=== PATIENT | female | born 1965 | race Caucasian/White ===

== ENCOUNTER 2019-02-09 06:19 | Inpatient (IN) ==
[2019-02-09] MEDS ORDERED: Albuterol 2.5 MG/3 ML NEBULIZER IH ONE ×2 (06:54→07:25)
[2019-02-09] MEDS ORDERED: Albuterol 2.5 MG/3 ML NEBULIZER ONE (06:56)
[2019-02-09] MEDS ORDERED: *HR* Heparin 5,000 UNIT/ML VIAL ONE ×2 (06:57→11:40)
[2019-02-09] MEDS ORDERED: Heparin 1,000 UNITS/500 mL 500 ML ONE ×2 (06:58→07:19)
[2019-02-09] MEDS ORDERED: *HR* PHENYLEPHRINE 1,000 MCG/10 ML SYRINGE IVP ONE (06:59)
[2019-02-09] MEDS ORDERED: Ringers Solution, Lactated 1,000 ML IVC SCH (07:00)
[2019-02-09] MEDS ORDERED: *HR* Phenylephrine 10 MG/ML VIAL ONE (07:00)
[2019-02-09] MEDS ORDERED: *HR* Rocuronium Bromide 50 MG/5 ML VIAL ONE (07:05)
[2019-02-09] MEDS ORDERED: Lidocaine -MPF 4% 5 ML AMPUL ONE (07:05)
[2019-02-09] MEDS ORDERED: Ondansetron 4 MG/2 ML VIAL ONE ×2 (07:05→13:27)
[2019-02-09] MEDS ORDERED: Dexamethasone 4 MG/ML VIAL ONE (07:05)
[2019-02-09] MEDS ORDERED: *HR* Succinylcholine 200 MG/10 ML VIAL IVP ONE (07:05)
[2019-02-09] MEDS ORDERED: Lidocaine -MPF 1% 2 ML AMPUL ONE (07:05)
[2019-02-09] MEDS ORDERED: Lidocaine -MPF 2% 2 ML VIAL ONE ×2 (07:05→10:17)
[2019-02-09] MEDS ORDERED: *HR* FentaNYL (PF) 100 MCG/2 ML VIAL ONE ×4 (07:07→10:12)
[2019-02-09] MEDS ORDERED: *HR* Propofol 200 MG/20 ML VIAL IVP ONE (07:07)
[2019-02-09] MEDS ORDERED: *HR* Midazolam HCl 2 MG/2 ML VIAL ONE (07:07)
[2019-02-09] MEDS ORDERED: Ondansetron 4 MG/2 ML VIAL IVP ONE (07:25)
[2019-02-09] MEDS ORDERED: *HR* OxyCODONE Immed Rel 5 MG TABLET PO PRN (07:25)
[2019-02-09] MEDS ORDERED: *HR* Promethazine 25 MG/ML VIAL IVP PRN (07:25)
[2019-02-09] MEDS ORDERED: Famotidine 20 MG/2 ML VIAL IVP ONE (07:25)
[2019-02-09] MEDS ORDERED: Acetaminophen IV 1,000 MG/100 ML INFUS..BTL IVPB ONE (07:25)
[2019-02-09] MEDS ORDERED: *HR* Labetalol 20 MG/4 ML SYRINGE IVP PRN ×2 (07:25→14:47)
[2019-02-09] MEDS ORDERED: CeFAZolin Syr 2,000MG/20 ML 2,000 MG/20 ML SYRINGE IVPB ONE (07:32)
[2019-02-09] MEDS ORDERED: ceFAZolin 1,000 MG, Sodium Chloride IRRigation 1,000 ML IR ONE (07:45)
[2019-02-09] MEDS ORDERED: EPHEDrine 50 MG/ML VIAL ONE (08:08)
[2019-02-09] MEDS ORDERED: *HR* HYDROMORPHONE 2 MG/ML VIAL ONE ×2 (10:29→13:25)
[2019-02-09] MEDS: *HR* HYDROmorphone (PF) 1 MG/ML SYRINGE IVP PRN ×2 (13:45→13:50)
[2019-02-09] MEDS ORDERED: Naloxone 0.4 MG/ML INJ IVP PRN (14:47)
[2019-02-09] MEDS ORDERED: Ondansetron 4 MG/2 ML VIAL IVP PRN (14:47)
[2019-02-09] MEDS: ceFAZolin 3,000 MG in 0.9 % Sodium Chloride 100 ML IVPB SCH (15:47)
[2019-02-09] MEDS: Gabapentin 400 MG CAPSULE PO SCH ×2 (15:47→20:43)
[2019-02-09] MEDS: *HR* OxyCODONE/APAP 10/325 TABLET PO PRN ×2 (15:47→21:49)
[2019-02-09] MEDS: Nicotine 21 MG PATCH.TD24 TD SCH (20:44)
[2019-02-10] MEDS: ceFAZolin 3,000 MG in 0.9 % Sodium Chloride 100 ML IVPB SCH ×2 (00:02→07:36)
[2019-02-10 05:56] LABS: Basophils % 0.1 %; Eosinophils % 0.3 %; Hematocrit 38.9 % (35.3-44.9); Immature Granulocytes % 0.3 % (0-4); Lymphocytes # 3.5 K/mcL (0.6-4.6); Mean Corpuscular HGB Conc 32.1 g/dL (31.6-35.5); Mean Corpuscular Hemoglobin 30.1 pg (28.0-33.3); Mean Corpuscular Volume 93.7 fL (83.0-100.0); Mean Platelet Volume 9.6 fL (9.4-12.4); Monocytes # 0.9 K/mcL (0.0-1.3); Neutrophils # 10.8 K/mcL (1.6-8.9); Platelet Count 290 K/mcL (140-400); Red Blood Count 4.15 M/mcL (3.82-4.97); Red Cell Distribution Width 14.3 % (11.5-14.5); Segmented Neutrophils % 70.3 %; White Blood Count 15.4 K/mcL (4.3-11.1)
[2019-02-10 06:01] LABS: Hemoglobin 12.5 g/dL (11.5-15.4)
[2019-02-10 06:15] LABS: BUN/Creatinine Ratio 17 (6-26); Blood Urea Nitrogen 14 mg/dL (6-20); Calcium 8.6 mg/dL (8.6-10.3); Carbon Dioxide 29 mEq/L (23-29); Chloride 101 mEq/L (98-107); Glucose 112 mg/dL (70-105); Osmolality,Calculated 291 (280-300); Sodium 140 mEq/L (136-145); eGFR For African Americans > 60 (> 60); eGFR For Non-African Americans > 60 (> 60)
[2019-02-10] MEDS: *HR* OxyCODONE/APAP 10/325 TABLET PO PRN ×2 (06:46→13:09)
[2019-02-10] MEDS: Gabapentin 400 MG CAPSULE PO SCH ×3 (07:36→18:12)
[2019-02-10] MEDS: Nicotine 21 MG PATCH.TD24 TD SCH (07:36)
[2019-02-10] MEDS ORDERED: Lisinopril 20 MG TABLET PO SCH (09:00)
[2019-02-10] MEDS: Acetaminophen/Aspirin/Caffeine TABLET PO PRN ×2 (09:11→18:12)
[2019-02-10 19:18] VITALS: BP 132/89
== END 2019-02-10 19:00 | disposition home or self-care (01) | DRG 253 ==
LOC: SAMDAY 06:19 → 2NNU 14:22
PROVIDERS: ADMIT Surgery Vascular Surgery; ATTEND Surgery Vascular Surgery

== ENCOUNTER 2019-02-26 08:39 | Inpatient (IN) ==
[2019-02-26] MEDS ORDERED: *HR* Midazolam HCl 2 MG/2 ML VIAL IV ONE (10:52)
[2019-02-26] MEDS ORDERED: *HR* Midazolam HCl 5 MG/5 ML VIAL IVP ONE (10:52)
[2019-02-26] MEDS ORDERED: Ondansetron 4 MG/2 ML VIAL IVP PRN (11:58)
[2019-02-26] MEDS ORDERED: Naloxone 0.4 MG/ML INJ IVP PRN (11:58)
[2019-02-26] MEDS ORDERED: Ringers Solution, Lactated 1,000 ML IVC SCH (12:00)
[2019-02-26] MEDS ORDERED: *HR* Heparin 5,000 UNIT/ML VIAL IVP PRN ×2 (12:04)
[2019-02-26 12:54] LABS: VBG HCO3 24 mEq/L (21-27); VBG PCO2 39 mmHg (41-51); VBG PH 7.39 pH Units (7.32-7.42); VBG PO2 41 mmHg (25-50)
[2019-02-26 13:00] LABS: Basophils % 0.1 %; Hematocrit 30.7 % (35.3-44.9); Hemoglobin 9.8 g/dL (11.5-15.4); Lymphocytes # 0.9 K/mcL (0.6-4.6); Lymphocytes % 4.4 %; Mean Corpuscular HGB Conc 31.9 g/dL (31.6-35.5); Mean Corpuscular Volume 90.8 fL (83.0-100.0); Mean Platelet Volume 9.4 fL (9.4-12.4); Monocytes # 1.4 K/mcL (0.0-1.3); Monocytes % 6.5 %; Platelet Count 406 K/mcL (140-400); Red Blood Count 3.38 M/mcL (3.82-4.97); Red Cell Distribution Width 14.6 % (11.5-14.5); White Blood Count 20.7 K/mcL (4.3-11.1)
[2019-02-26] MEDS ORDERED: Cefepime HCl 2,000 MG in 0.9 % Sodium Chloride Mini Bag 100 ML IVPB SCH (13:00)
[2019-02-26 13:09] LABS: Heparin anti-factor XA UFH 0.03 IU/mL (0.30-0.70); INR 1.5; Prothrombin Time 17.2 Seconds (9.4-12.1)
[2019-02-26 13:35] LABS: Alanine Aminotransferase 9 Units/L (7-52); Albumin 2.9 g/dL (3.5-5.7); Albumin/Globulin Ratio 0.9 (1.1-2.2); Alkaline Phosphatase 67 Units/L (34-104); Aspartate Amino Transferase 38 Units/L (13-39); BUN/Creatinine Ratio 21 (6-26); Bilirubin,Direct 0.2 mg/dL (0.0-0.2); Bilirubin,Indirect 0.2 mg/dL (0.0-1.2); Bilirubin,Total 0.4 mg/dL (0.3-1.0); Blood Urea Nitrogen 16 mg/dL (6-20); Calcium 8.1 mg/dL (8.6-10.3); Carbon Dioxide 25 mEq/L (23-29); Chloride 103 mEq/L (98-107); Globulin 3.3 g/dL (2.4-3.5); Glucose 136 mg/dL (70-105); Magnesium 2.1 mg/dL (1.6-2.6); Osmolality,Calculated 281 (280-300); Sodium 134 mEq/L (136-145); Total Protein 6.2 g/dL (6.4-8.9); Troponin I 10.16 ng/mL (< 0.04); eGFR For African Americans > 60 (> 60); eGFR For Non-African Americans > 60 (> 60)
[2019-02-26] MEDS: Heparin 25,000 UNIT/250 ML D5W 25,000 UNIT/250 ML IV.SOLN IVC SCH (14:57)
[2019-02-26] MEDS ORDERED: Vancomycin 1,750 MG in 0.9 % Sodium Chloride 250 ML IVPB SCH (15:00)
[2019-02-26] MEDS ORDERED: Perflutren Lipid Microsphere 1.3 ML in 0.9 % Sodium Chloride 8.7 ML IVP ONE (15:16)
[2019-02-26] MEDS ORDERED: Nitroglycerin 1,000 MCG/10 ML VIAL IV ONE (15:58)
[2019-02-26] MEDS ORDERED: 0.9 % Sodium Chloride 1,000 ML ONE (15:58)
[2019-02-26] MEDS ORDERED: *HR* Heparin 10,000 UNIT/10 ML VIAL ONE (15:58)
[2019-02-26] MEDS ORDERED: Heparin 1,000 UNITS/500 mL 500 ML ONE (15:58)
[2019-02-26] MEDS ORDERED: ISOVUE-370 200 ML INFUS..BTL ONE (15:58)
[2019-02-26] MEDS ORDERED: Acyclovir 600 MG in D5% in Water 250 ML IVPB SCH (16:00)
[2019-02-26] MEDS ORDERED: Verapamil 5 MG/2 ML VIAL ONE (16:01)
[2019-02-26] MEDS ORDERED: *HR* Atropine Sulfate 1 MG/10 ML SYRINGE ONE (16:03)
[2019-02-26] MEDS: MEROPENEM IVP SCH (16:14)
[2019-02-26] MEDS: WATER FOR INJ IVP SCH (16:14)
[2019-02-26] MEDS: Dexamethasone 10 MG/ML VIAL IVP SCH ×2 (16:15→18:21)
[2019-02-26] MEDS ORDERED: *HR* Midazolam HCl 2 MG/2 ML VIAL ONE ×2 (16:45→19:22)
[2019-02-26] MEDS ORDERED: *HR* FentaNYL (PF) 100 MCG/2 ML VIAL ONE (16:45)
[2019-02-26] MEDS ORDERED: Tirofiban 5 MG/100 mL 5 MG/100 ML VIAL IV ONE (17:04)
[2019-02-26] MEDS ORDERED: *HR* Ticagrelor 90 MG TABLET ONE (17:26)
[2019-02-26] MEDS ORDERED: Tirofiban 12.5 MG/250ML 12.5 MG/250 ML BAG IVC SCH (17:30)
[2019-02-26] MEDS ORDERED: *HR* FentaNYL (PF) 100 MCG/2 ML VIAL IVP ONE (18:40)
[2019-02-26] MEDS ORDERED: Furosemide 40 MG/4 ML VIAL IVP ONE (19:52)
[2019-02-26] MEDS ORDERED: *HR* Metoprolol 5 MG/5 ML VIAL IVP ONE (20:00)
[2019-02-26 20:01] LABS: ABG Base Excess -10 mEq/L (-2 to 3); ABG HCO3 17 mEq/L (21-27); ABG Oxygen Saturation 97 % (95-98); ABG PCO2 41 mmHg (35-45); ABG PH 7.23 pH Units (7.32-7.45); ABG PO2 110 mmHg (85-104); ABG TCO2 19 mEq/L (20-26); Blood Gas Modality ASSIST CONTROL; Blood Gas VT 500 cc
[2019-02-26] MEDS: *HR* Metoprolol 5 MG/5 ML VIAL IVP PRN ×2 (20:08→20:38)
[2019-02-26 20:12] LABS: Hemoglobin 11.1 g/dL (11.5-15.4); Nucleated Red Blood Cells 0.1 /100 WBC (0)
[2019-02-26 20:13] LABS: Basophils # 0.1 K/mcL (0.0-0.2); Basophils % 0.2 %; Hematocrit 34.5 % (35.3-44.9); Immature Granulocytes % 2.1 % (0-4); Lymphocytes % 7.5 %; Mean Corpuscular HGB Conc 32.2 g/dL (31.6-35.5); Mean Corpuscular Hemoglobin 29.4 pg (28.0-33.3); Mean Corpuscular Volume 91.3 fL (83.0-100.0); Mean Platelet Volume 9.6 fL (9.4-12.4); Monocytes # 1.1 K/mcL (0.0-1.3); Monocytes % 4.2 %; Neutrophils # 22.5 K/mcL (1.6-8.9); Platelet Count 621 K/mcL (140-400); Red Blood Count 3.78 M/mcL (3.82-4.97); White Blood Count 26.1 K/mcL (4.3-11.1)
[2019-02-26] MEDS: Acetaminophen 325 MG TABLET PO PRN (20:22)
[2019-02-26 20:26] LABS: INR 1.5; Prothrombin Time 16.7 Seconds (9.4-12.1)
[2019-02-26 20:29] LABS: Activated Partial Thrombo Time 31.5 Seconds (26.0-36.0)
[2019-02-26 20:33] LABS: Platelet Estimate Increased (Normal)
[2019-02-26 20:34] LABS: Hypersegmented Neutrophils Present (Not Present); Toxic Granulation Present (Not Present)
[2019-02-26 20:39] LABS: Alanine Aminotransferase 15 Units/L (7-52); Albumin/Globulin Ratio 0.9 (1.1-2.2); Alkaline Phosphatase 81 Units/L (34-104); Aspartate Amino Transferase 75 Units/L (13-39); BUN/Creatinine Ratio 20 (6-26); Bilirubin,Direct 0.1 mg/dL (0.0-0.2); Bilirubin,Indirect 0.3 mg/dL (0.0-1.2); Bilirubin,Total 0.4 mg/dL (0.3-1.0); Blood Urea Nitrogen 19 mg/dL (6-20); Carbon Dioxide 15 mEq/L (23-29); Chloride 101 mEq/L (98-107); Globulin 3.4 g/dL (2.4-3.5); Glucose 240 mg/dL (70-105); Magnesium 2.3 mg/dL (1.6-2.6); Osmolality,Calculated 284 (280-300); Sodium 132 mEq/L (136-145); Total Protein 6.4 g/dL (6.4-8.9); Troponin I 24.84 ng/mL (< 0.04); eGFR For African Americans > 60 (> 60); eGFR For Non-African Americans 60 (> 60)
[2019-02-26] MEDS: Nitroglycerin 25 MG/250 ML INFUS..BTL IVC SCH (21:00)
[2019-02-26] MEDS ORDERED: Aspirin 325 MG TABLET PO ONE (21:32)
[2019-02-26] MEDS: FentaNYL (PF) 1,000 MCG in 0.9 % Sodium Chloride 80 ML IVC SCH (21:49)
[2019-02-26] MEDS ORDERED: *HR* Ticagrelor 90 MG TABLET PO STA (21:57)
[2019-02-26] MEDS ORDERED: 0.9 % Sodium Chloride 500 ML ONE (22:13)
[2019-02-27] MEDS ORDERED: Water for inj. (sterile) 20 ML IV ONE (00:50)
[2019-02-27] MEDS: WATER FOR INJ IVP SCH ×2 (00:53→08:30)
[2019-02-27] MEDS: MEROPENEM IVP SCH ×2 (00:53→08:30)
[2019-02-27] MEDS ORDERED: Furosemide 240 MG in D5% in Water 96 ML IVC SCH (01:00)
[2019-02-27] MEDS: Norepinephrine 4 MG in D5% in Water 250 ML IVC SCH ×2 (01:01→08:24)
[2019-02-27] MEDS: Dexamethasone 10 MG/ML VIAL IVP SCH ×5 (01:15→23:56)
[2019-02-27] MEDS: FentaNYL (PF) 1,000 MCG in 0.9 % Sodium Chloride 80 ML IVC SCH ×3 (04:49→21:53)
[2019-02-27 05:25] LABS: Blood Gas VT 500 cc; VBG HCO3 23 mEq/L (21-27); VBG PCO2 39 mmHg (41-51); VBG PH 7.37 pH Units (7.32-7.42); VBG PO2 40 mmHg (25-50)
[2019-02-27 05:31] LABS: ABG Base Excess -2 mEq/L (-2 to 3); ABG HCO3 22 mEq/L (21-27); ABG Oxygen Saturation 92 % (95-98); ABG PCO2 36 mmHg (35-45); ABG PO2 64 mmHg (85-104); ABG TCO2 23 mEq/L (20-26); Blood Gas Modality ASSIST CONTROL; Blood Gas VT 500 cc
[2019-02-27 05:50] LABS: Basophils % 0.2 %; Hematocrit 30.4 % (35.3-44.9); Lymphocytes # 1.2 K/mcL (0.6-4.6); Mean Corpuscular HGB Conc 32.9 g/dL (31.6-35.5); Mean Corpuscular Hemoglobin 29.2 pg (28.0-33.3); Mean Corpuscular Volume 88.6 fL (83.0-100.0); Mean Platelet Volume 9.7 fL (9.4-12.4); Monocytes % 4.2 %; Neutrophils # 20.7 K/mcL (1.6-8.9); Nucleated Red Blood Cells 0.1 /100 WBC (0); Platelet Count 395 K/mcL (140-400); Red Blood Count 3.43 M/mcL (3.82-4.97); Red Cell Distribution Width 14.8 % (11.5-14.5); Segmented Neutrophils % 89.6 %; White Blood Count 23.1 K/mcL (4.3-11.1)
[2019-02-27 05:56] LABS: VBG Ionized Calcium 0.97 mmol/L (1.15-1.35)
[2019-02-27 06:26] LABS: BUN/Creatinine Ratio 25 (6-26); Blood Urea Nitrogen 28 mg/dL (6-20); Calcium 7.3 mg/dL (8.6-10.3); Carbon Dioxide 24 mEq/L (23-29); Chloride 103 mEq/L (98-107); Glucose 167 mg/dL (70-105); Osmolality,Calculated 293 (280-300); Sodium 137 mEq/L (136-145); eGFR For African Americans > 60 (> 60); eGFR For Non-African Americans 52 (> 60)
[2019-02-27] MEDS ORDERED: *HR* Midazolam HCl 2 MG/2 ML VIAL IVP ONE (06:30)
[2019-02-27] MEDS: *HR* Ticagrelor 90 MG TABLET PO SCH ×2 (08:30→20:47)
[2019-02-27] MEDS: Aspirin 81 MG TAB.CHEW PO SCH (08:30)
[2019-02-27 09:02] LABS: Bilirubin,Urine Negative (Negative); Blood,Urine Moderate (Negative); Clarity,Urine Clear (Clear); Color,Urine Yellow (Yellow); Glucose,Urine (UA) Normal (Normal); Ketones,Urine Negative (Negative); Leukocyte Esterase,Urine Negative (Negative); Nitrite,Urine Negative (Negative); Protein,Urine Negative (Neg-Trace); Specific Gravity,Urine 1.011 (1.010-1.025); Urobilinogen,Urine Normal (Normal)
[2019-02-27 09:05] LABS: Bacteria,Urine None Seen per hpf (None-Few); Squamous Epithelial Cell,Urine Many per lpf (None-Few)
[2019-02-27 10:02] LABS: Amphetamine Screen,Urine Negative ng/mL (Cutoff=1000); Barbiturate Screen,Urine Negative ng/mL (Cutoff=200)
[2019-02-27 10:03] LABS: Benzodiazepines Screen,Urine Negative ng/mL (Cutoff=300); Cannabinoid Screen,Urine Negative ng/mL (Cutoff = 50); Cocaine Screen,Urine Negative ng/mL (Cutoff= 300); Opiate Screen,Urine Negative ng/mL (Cutoff=300); Phencyclidine Screen,Urine Negative ng/mL (Cutoff=25)
[2019-02-27] MEDS: Ipratropium/Albuterol Neb 3 ML IH SCH ×4 (11:22→23:21)
[2019-02-27] MEDS: Heparin 25,000 UNIT/250 ML D5W 25,000 UNIT/250 ML IV.SOLN IVC SCH (11:24)
[2019-02-27] MEDS: Artificial Tears SOLN 15 ML BOTTLE BOTH EYES SCH ×4 (11:28→20:48)
[2019-02-27] MEDS: Pantoprazole 40 MG VIAL IVP SCH (11:28)
[2019-02-27] MEDS ORDERED: Potassium Chloride Elixir 20 MEQ/15 ML UDC GTUBE ONE (11:32)
[2019-02-27] MEDS: Nitroglycerin 25 MG/250 ML INFUS..BTL IVC SCH (20:27)
[2019-02-27] MEDS: Furosemide 40 MG/4 ML VIAL IVP SCH (20:46)
[2019-02-27] MEDS: Chlorhexidine Rinse 15 ML MOUTHWASH MM SCH (20:47)
[2019-02-27 21:22] LABS: Acinetobacter baumannii by PCR Not Detected (Not Detect); Enterobacter cloacae Cmplx PCR Not Detected (Not Detect); Enterobacteriaceae by PCR Not Detected (Not Detect); Enterococcus by PCR Not Detected (Not Detect); Escherichia coli by PCR Not Detected (Not Detect); Klebsiella oxytoca by PCR Not Detected (Not Detect); Klebsiella pneumoniae by PCR Not Detected (Not Detect); Proteus by PCR Not Detected (Not Detect); Pseudomonas aeruginosa by PCR Not Detected (Not Detect); Serratia marcescens by PCR Not Detected (Not Detect); Staphylococcus aureus by PCR DETECTED (Not Detect); Streptococcus agalactiae(B)PCR Not Detected (Not Detect); Streptococcus by PCR Not Detected (Not Detect); Streptococcus pneumoniae PCR Not Detected (Not Detect); Streptococcus pyogenes (A) PCR Not Detected (Not Detect); mecA Methicillin-Resist Gene Not Detected (Not Detect)
[2019-02-27 21:23] LABS: Candida albicans by PCR Not Detected (Not Detect); Candida glabrata by PCR Not Detected (Not Detect); Candida krusei by PCR Not Detected (Not Detect); Candida parapsilosis by PCR Not Detected (Not Detect); Candida tropicalis by PCR Not Detected (Not Detect)
[2019-02-28] MEDS: Ipratropium/Albuterol Neb 3 ML IH SCH ×6 (03:17→23:35)
[2019-02-28] MEDS: FentaNYL (PF) 1,000 MCG in 0.9 % Sodium Chloride 80 ML IVC SCH ×3 (04:08→16:01)
[2019-02-28 05:53] LABS: ABG Base Excess 4 mEq/L (-2 to 3); ABG HCO3 29 mEq/L (21-27); ABG Oxygen Saturation 98 % (95-98); ABG PCO2 46 mmHg (35-45); ABG PH 7.41 pH Units (7.32-7.45); ABG PO2 109 mmHg (85-104); ABG TCO2 30 mEq/L (20-26); Blood Gas Modality AF; Blood Gas VT 500 cc
[2019-02-28] MEDS: Dexamethasone 10 MG/ML VIAL IVP SCH ×3 (06:02→18:22)
[2019-02-28 07:25] LABS: Basophils % 0.1 %; Hematocrit 28.4 % (35.3-44.9); Hemoglobin 9.1 g/dL (11.5-15.4); Immature Granulocytes % 0.8 % (0-4); Lymphocytes # 1.2 K/mcL (0.6-4.6); Lymphocytes % 5.2 %; Mean Corpuscular Hemoglobin 28.2 pg (28.0-33.3); Mean Corpuscular Volume 87.9 fL (83.0-100.0); Mean Platelet Volume 9.7 fL (9.4-12.4); Monocytes # 0.9 K/mcL (0.0-1.3); Neutrophils # 21.1 K/mcL (1.6-8.9); Platelet Count 340 K/mcL (140-400); Red Blood Count 3.23 M/mcL (3.82-4.97); Red Cell Distribution Width 14.8 % (11.5-14.5); Segmented Neutrophils % 89.9 %; White Blood Count 23.5 K/mcL (4.3-11.1)
[2019-02-28 07:41] LABS: BUN/Creatinine Ratio 42 (6-26); Blood Urea Nitrogen 39 mg/dL (6-20); Calcium 7.5 mg/dL (8.6-10.3); Carbon Dioxide 29 mEq/L (23-29); Chloride 103 mEq/L (98-107); Glucose 175 mg/dL (70-105); Osmolality,Calculated 312 (280-300); Potassium 2.6 mEq/L (3.5-5.1); Sodium 144 mEq/L (136-145); eGFR For African Americans > 60 (> 60); eGFR For Non-African Americans > 60 (> 60)
[2019-02-28] MEDS ORDERED: Potassium Chloride Elixir 20 MEQ/15 ML UDC GTUBE ONE ×2 (07:44→13:56)
[2019-02-28] MEDS ORDERED: Potassium Chloride 40 MEQ/200 ML BAG IVPB ONE (07:47)
[2019-02-28] MEDS: *HR* Ticagrelor 90 MG TABLET PO SCH ×2 (07:51→19:43)
[2019-02-28] MEDS: Pantoprazole 40 MG VIAL IVP SCH (07:51)
[2019-02-28] MEDS: Artificial Tears SOLN 15 ML BOTTLE BOTH EYES SCH ×4 (07:51→19:34)
[2019-02-28] MEDS: Aspirin 81 MG TAB.CHEW PO SCH (07:51)
[2019-02-28] MEDS: Chlorhexidine Rinse 15 ML MOUTHWASH MM SCH ×2 (07:51→19:43)
[2019-02-28 07:56] LABS: Platelet Estimate Normal (Normal)
[2019-02-28] MEDS: Furosemide 40 MG/4 ML VIAL IVP SCH (08:06)
[2019-02-28] MEDS ORDERED: *HR* Atropine Sulfate 1 MG/10 ML SYRINGE ONE (09:33)
[2019-02-28] MEDS ORDERED: Aminoglycoside Consult 1 EACH MC ONE (10:09)
[2019-02-28] MEDS: Heparin 25,000 UNIT/250 ML D5W 25,000 UNIT/250 ML IV.SOLN IVC SCH ×2 (10:58→12:37)
[2019-02-28] MEDS ORDERED: *HR* Heparin 5,000 UNIT/ML VIAL IVP PRN ×2 (11:57)
[2019-02-28] MEDS ORDERED: *HR* Heparin 5,000 UNIT/ML VIAL IVP ONE (11:57)
[2019-02-28 13:06] LABS: Heparin anti-factor XA UFH 0.01 IU/mL (0.30-0.70)
[2019-02-28 13:07] LABS: INR 1.4; Prothrombin Time 16.2 Seconds (9.4-12.1)
[2019-02-28] MEDS: Nitroglycerin 25 MG/250 ML INFUS..BTL IVC SCH (19:33)
[2019-02-28] MEDS: Norepinephrine 4 MG in D5% in Water 250 ML IVC SCH (22:09)
[2019-03-01] MEDS: Dexamethasone 10 MG/ML VIAL IVP SCH ×2 (00:37→05:40)
[2019-03-01 03:36] LABS: Basophils % 0.3 %; Immature Granulocytes % 3.6 % (0-4); Monocytes % 4.5 %; Nucleated Red Blood Cells 0.1 /100 WBC (0); Segmented Neutrophils % 87.6 %
[2019-03-01 03:38] LABS: Basophils # 0.1 K/mcL (0.0-0.2); Hematocrit 29.7 % (35.3-44.9); Hemoglobin 9.5 g/dL (11.5-15.4); Mean Corpuscular Hemoglobin 29.1 pg (28.0-33.3); Mean Corpuscular Volume 90.8 fL (83.0-100.0); Monocytes # 1.1 K/mcL (0.0-1.3); Neutrophils # 21.7 K/mcL (1.6-8.9); Platelet Count 413 K/mcL (140-400); Red Blood Count 3.27 M/mcL (3.82-4.97); Red Cell Distribution Width 14.8 % (11.5-14.5); White Blood Count 24.8 K/mcL (4.3-11.1)
[2019-03-01] MEDS: Ipratropium/Albuterol Neb 3 ML IH SCH ×5 (03:56→20:10)
[2019-03-01 04:00] LABS: BUN/Creatinine Ratio 45 (6-26); Blood Urea Nitrogen 43 mg/dL (6-20); Calcium 7.8 mg/dL (8.6-10.3); Carbon Dioxide 26 mEq/L (23-29); Chloride 109 mEq/L (98-107); Glucose 173 mg/dL (70-105); Osmolality,Calculated 315 (280-300); Potassium 3.8 mEq/L (3.5-5.1); Sodium 145 mEq/L (136-145); eGFR For African Americans > 60 (> 60); eGFR For Non-African Americans > 60 (> 60)
[2019-03-01] MEDS ORDERED: Potassium Chloride Elixir 20 MEQ/15 ML UDC PO ONE (04:23)
[2019-03-01 04:28] LABS: Platelet Estimate Normal (Normal)
[2019-03-01 04:56] LABS: ABG Base Excess 4 mEq/L (-2 to 3); ABG HCO3 30 mEq/L (21-27); ABG Oxygen Saturation 98 % (95-98); ABG PCO2 52 mmHg (35-45); ABG PH 7.38 pH Units (7.32-7.45); ABG PO2 112 mmHg (85-104); ABG TCO2 32 mEq/L (20-26); Blood Gas Modality PRVC; Blood Gas VT 500 cc
[2019-03-01] MEDS ORDERED: Potassium Chloride 40 MEQ, Lidocaine 1% 2 ML in D5% in Water 500 ML IVPB ONE (05:00)
[2019-03-01] MEDS: Artificial Tears SOLN 15 ML BOTTLE BOTH EYES SCH ×4 (08:13→21:28)
[2019-03-01] MEDS: Chlorhexidine Rinse 15 ML MOUTHWASH MM SCH ×2 (08:13→21:14)
[2019-03-01] MEDS: Pantoprazole 40 MG VIAL IVP SCH (08:14)
[2019-03-01] MEDS: *HR* Ticagrelor 90 MG TABLET PO SCH ×2 (08:14→21:20)
[2019-03-01] MEDS: Aspirin 81 MG TAB.CHEW PO SCH (08:14)
[2019-03-01] MEDS ORDERED: Furosemide 40 MG/4 ML VIAL IVP SCH (09:00)
[2019-03-01] MEDS: Heparin 25,000 UNIT/250 ML D5W 25,000 UNIT/250 ML IV.SOLN IVC SCH (09:23)
[2019-03-01] MEDS ORDERED: *HR* Dextrose 50 % in Water (Syg) 50 ML SYRINGE IVP PRN (12:07)
[2019-03-01] MEDS ORDERED: Dextrose Gel 15 GM/37.5 ML TUBE PO PRN ×2 (12:07)
[2019-03-01] MEDS ORDERED: D5% in Water 1,000 ML IVC PRN (12:07)
[2019-03-01] MEDS: Insulin LISPRO 300 UNITS/3 ML VIAL SQ SCH ×2 (18:23→23:39)
[2019-03-01] MEDS ORDERED: *HR* Midazolam HCl 2 MG/2 ML VIAL IVP ONE (20:56)
[2019-03-01] MEDS: Nitroglycerin 25 MG/250 ML INFUS..BTL IVC SCH (21:14)
[2019-03-01] MEDS: Dexmedetomidine HCl 400 MCG/100 ML MLS IVC SCH (22:35)
[2019-03-01] MEDS: Norepinephrine 4 MG in D5% in Water 250 ML IVC SCH (22:37)
[2019-03-02] MEDS: Ipratropium/Albuterol Neb 3 ML IH SCH ×7 (00:20→23:13)
[2019-03-02 04:21] LABS: Hematocrit 28.3 % (35.3-44.9); Mean Corpuscular HGB Conc 31.8 g/dL (31.6-35.5); Mean Corpuscular Hemoglobin 28.8 pg (28.0-33.3); Mean Corpuscular Volume 90.4 fL (83.0-100.0); Nucleated Red Blood Cells 0.2 /100 WBC (0); Platelet Count 394 K/mcL (140-400); Red Blood Count 3.13 M/mcL (3.82-4.97); Red Cell Distribution Width 15.6 % (11.5-14.5); White Blood Count 24.8 K/mcL (4.3-11.1)
[2019-03-02 04:36] LABS: BUN/Creatinine Ratio 58 (6-26); Blood Urea Nitrogen 53 mg/dL (6-20); Calcium 7.7 mg/dL (8.6-10.3); Carbon Dioxide 30 mEq/L (23-29); Chloride 111 mEq/L (98-107); Glucose 181 mg/dL (70-105); Osmolality,Calculated 323 (280-300); Potassium 4.1 mEq/L (3.5-5.1); Sodium 147 mEq/L (136-145); eGFR For African Americans > 60 (> 60); eGFR For Non-African Americans > 60 (> 60)
[2019-03-02 05:00] LABS: ABG Base Excess 7 mEq/L (-2 to 3); ABG HCO3 32 mEq/L (21-27); ABG Oxygen Saturation 96 % (95-98); ABG PCO2 51 mmHg (35-45); ABG PH 7.41 pH Units (7.32-7.45); ABG PO2 81 mmHg (85-104); ABG TCO2 34 mEq/L (20-26); Blood Gas VT 500 cc
[2019-03-02 05:01] LABS: Hypochromasia Present (Not Present); Lymphocytes # 1.5 K/mcL (0.6-4.6); Monocytes # 1.2 K/mcL (0.0-1.3); Neutrophils # 21.8 K/mcL (1.6-8.9); Platelet Estimate Normal (Normal); Reactive Lymphocytes Present (Not Present)
[2019-03-02] MEDS: Insulin LISPRO 300 UNITS/3 ML VIAL SQ SCH ×4 (06:09→23:32)
[2019-03-02] MEDS: Heparin 25,000 UNIT/250 ML D5W 25,000 UNIT/250 ML IV.SOLN IVC SCH (06:25)
[2019-03-02] MEDS ORDERED: Furosemide 20 MG/2 ML VIAL IVP SCH (09:00)
[2019-03-02] MEDS: Chlorhexidine Rinse 15 ML MOUTHWASH MM SCH ×2 (09:40→20:33)
[2019-03-02] MEDS: Pantoprazole 40 MG VIAL IVP SCH (09:40)
[2019-03-02] MEDS: Aspirin 81 MG TAB.CHEW PO SCH (09:40)
[2019-03-02] MEDS: *HR* Ticagrelor 90 MG TABLET PO SCH ×2 (09:40→20:33)
[2019-03-02] MEDS: Artificial Tears SOLN 15 ML BOTTLE BOTH EYES SCH ×4 (09:41→20:35)
[2019-03-02] MEDS: carvediloL 6.25 MG TABLET PO SCH ×2 (09:47→17:36)
[2019-03-02] MEDS: Dexmedetomidine HCl 400 MCG/100 ML MLS IVC SCH ×3 (09:53→20:34)
[2019-03-02] MEDS: Sennosides/Docusate Sodium TABLET PO SCH ×2 (17:42→20:33)
[2019-03-02] MEDS: Nitroglycerin 25 MG/250 ML INFUS..BTL IVC SCH (20:34)
[2019-03-02] MEDS: Norepinephrine 4 MG in D5% in Water 250 ML IVC SCH (21:37)
[2019-03-03] MEDS: Dexmedetomidine HCl 400 MCG/100 ML MLS IVC SCH ×6 (00:24→20:45)
[2019-03-03] MEDS: Ipratropium/Albuterol Neb 3 ML IH SCH ×6 (03:01→23:49)
[2019-03-03 03:29] LABS: Red Blood Count 3.35 M/mcL (3.82-4.97)
[2019-03-03 03:30] LABS: Hematocrit 31.2 % (35.3-44.9); Hemoglobin 9.6 g/dL (11.5-15.4); Mean Corpuscular HGB Conc 30.8 g/dL (31.6-35.5); Mean Corpuscular Hemoglobin 28.7 pg (28.0-33.3); Mean Corpuscular Volume 93.1 fL (83.0-100.0); Mean Platelet Volume 10.1 fL (9.4-12.4); Nucleated Red Blood Cells 0.4 /100 WBC (0); Platelet Count 366 K/mcL (140-400); Red Cell Distribution Width 15.3 % (11.5-14.5); White Blood Count 24.9 K/mcL (4.3-11.1)
[2019-03-03 03:49] LABS: Lymphocytes # 2.5 K/mcL (0.6-4.6); Monocytes # 1.5 K/mcL (0.0-1.3); Neutrophils # 20.9 K/mcL (1.6-8.9)
[2019-03-03 03:50] LABS: Platelet Estimate Normal (Normal)
[2019-03-03 03:51] LABS: BUN/Creatinine Ratio 70 (6-26); Blood Urea Nitrogen 48 mg/dL (6-20); Calcium 7.8 mg/dL (8.6-10.3); Carbon Dioxide 30 mEq/L (23-29); Chloride 113 mEq/L (98-107); Glucose 169 mg/dL (70-105); Osmolality,Calculated 319 (280-300); Potassium 4.6 mEq/L (3.5-5.1); Sodium 146 mEq/L (136-145); eGFR For African Americans > 60 (> 60); eGFR For Non-African Americans > 60 (> 60)
[2019-03-03] MEDS: Heparin 25,000 UNIT/250 ML D5W 25,000 UNIT/250 ML IV.SOLN IVC SCH (04:06)
[2019-03-03 04:24] LABS: ABG Base Excess 7 mEq/L (-2 to 3); ABG HCO3 32 mEq/L (21-27); ABG Oxygen Saturation 96 % (95-98); ABG PCO2 46 mmHg (35-45); ABG PH 7.46 pH Units (7.32-7.45); ABG PO2 82 mmHg (85-104); ABG TCO2 34 mEq/L (20-26); Blood Gas Modality VC; Blood Gas VT 500 cc
[2019-03-03] MEDS: Insulin LISPRO 300 UNITS/3 ML VIAL SQ SCH ×5 (06:27→20:44)
[2019-03-03] MEDS: Artificial Tears SOLN 15 ML BOTTLE BOTH EYES SCH ×4 (09:03→20:43)
[2019-03-03] MEDS ORDERED: Haloperidol Lactate 5 MG/ML VIAL IVP ONE (09:48)
[2019-03-03] MEDS: Sennosides/Docusate Sodium TABLET PO SCH ×2 (10:04→20:44)
[2019-03-03] MEDS: Pantoprazole 40 MG VIAL IVP SCH (10:04)
[2019-03-03] MEDS: Chlorhexidine Rinse 15 ML MOUTHWASH MM SCH ×2 (10:04→20:44)
[2019-03-03] MEDS: Aspirin 81 MG TAB.CHEW PO SCH (10:04)
[2019-03-03] MEDS: carvediloL 6.25 MG TABLET PO SCH ×2 (10:05→19:02)
[2019-03-03] MEDS: *HR* Ticagrelor 90 MG TABLET PO SCH ×2 (10:05→20:44)
[2019-03-03] MEDS: Haloperidol Lactate 5 MG/ML VIAL IVP SCH ×2 (13:22→16:00)
[2019-03-03] MEDS ORDERED: Isovue-370 500 ML BOTTLE IVP ONE (16:28)
[2019-03-03] MEDS ORDERED: Warfarin perPT PO PRN (18:00)
[2019-03-03] MEDS ORDERED: *HR* Warfarin 4 MG TABLET PO ONE (18:00)
[2019-03-03] MEDS: MetroNIDAZOLE 500 MG/100 ML 500 MG/100 ML BAG IVPB SCH (19:10)
[2019-03-03] MEDS: Cefepime HCl 2,000 MG in Water for inj. (sterile) 20 ML IVP SCH (19:11)
[2019-03-03 20:09] LABS: Bilirubin,Urine Negative (Negative); Blood,Urine Moderate (Negative); Clarity,Urine Clear (Clear); Color,Urine Yellow (Yellow); Glucose,Urine (UA) Normal (Normal); Ketones,Urine Negative (Negative); Leukocyte Esterase,Urine Negative (Negative); Nitrite,Urine Negative (Negative); Protein,Urine Negative (Neg-Trace); Specific Gravity,Urine > 1.030 (1.010-1.025); Urobilinogen,Urine Normal (Normal)
[2019-03-03 20:10] LABS: Bacteria,Urine None Seen per hpf (None-Few); Hyaline Casts,Urine None Seen per lpf (None-Few); Squamous Epithelial Cell,Urine Few per lpf (None-Few); WBC,Urine 0-3 per hpf (0-3)
[2019-03-03] MEDS: Nitroglycerin 25 MG/250 ML INFUS..BTL IVC SCH (20:44)
[2019-03-03] MEDS: Acetaminophen 325 MG TABLET PO PRN (20:45)
[2019-03-03] MEDS: Norepinephrine 4 MG in D5% in Water 250 ML IVC SCH (20:46)
[2019-03-04] MEDS: Insulin LISPRO 300 UNITS/3 ML VIAL SQ SCH ×7 (00:05→23:21)
[2019-03-04] MEDS: Cefepime HCl 2,000 MG in Water for inj. (sterile) 20 ML IVP SCH ×4 (00:15→23:21)
[2019-03-04] MEDS: Haloperidol Lactate 5 MG/ML VIAL IVP SCH ×2 (00:15→08:18)
[2019-03-04] MEDS: MetroNIDAZOLE 500 MG/100 ML 500 MG/100 ML BAG IVPB SCH ×4 (00:15→23:21)
[2019-03-04] MEDS: Dexmedetomidine HCl 400 MCG/100 ML MLS IVC SCH ×2 (02:59→08:45)
[2019-03-04] MEDS: Heparin 25,000 UNIT/250 ML D5W 25,000 UNIT/250 ML IV.SOLN IVC SCH ×2 (03:00→17:08)
[2019-03-04 03:26] LABS: Basophils % 0.2 %; Eosinophils % 0.1 %; Hematocrit 29.4 % (35.3-44.9); Hemoglobin 9.2 g/dL (11.5-15.4); Lymphocytes # 2.7 K/mcL (0.6-4.6); Lymphocytes % 11.3 %; Mean Corpuscular HGB Conc 31.3 g/dL (31.6-35.5); Mean Corpuscular Hemoglobin 28.7 pg (28.0-33.3); Mean Corpuscular Volume 91.6 fL (83.0-100.0); Mean Platelet Volume 10.4 fL (9.4-12.4); Monocytes # 1.3 K/mcL (0.0-1.3); Monocytes % 5.3 %; Neutrophils # 18.9 K/mcL (1.6-8.9); Nucleated Red Blood Cells 0.1 /100 WBC (0); Platelet Count 286 K/mcL (140-400); Red Blood Count 3.21 M/mcL (3.82-4.97); Red Cell Distribution Width 15.7 % (11.5-14.5); Segmented Neutrophils % 78.1 %; White Blood Count 24.2 K/mcL (4.3-11.1)
[2019-03-04 03:33] LABS: INR 1.4; Prothrombin Time 15.8 Seconds (9.4-12.1)
[2019-03-04] MEDS: Ipratropium/Albuterol Neb 3 ML IH SCH ×5 (03:46→20:04)
[2019-03-04 03:54] LABS: Heparin anti-factor XA UFH 0.72 IU/mL (0.30-0.70)
[2019-03-04 04:15] LABS: BUN/Creatinine Ratio 61 (6-26); Blood Urea Nitrogen 37 mg/dL (6-20); Calcium 7.5 mg/dL (8.6-10.3); Carbon Dioxide 30 mEq/L (23-29); Chloride 110 mEq/L (98-107); Glucose 176 mg/dL (70-105); Osmolality,Calculated 319 (280-300); Potassium 3.4 mEq/L (3.5-5.1); Sodium 148 mEq/L (136-145); eGFR For African Americans > 60 (> 60); eGFR For Non-African Americans > 60 (> 60)
[2019-03-04] MEDS: Aspirin 81 MG TAB.CHEW PO SCH (08:17)
[2019-03-04] MEDS: Sennosides/Docusate Sodium TABLET PO SCH ×2 (08:17→19:39)
[2019-03-04] MEDS: *HR* Ticagrelor 90 MG TABLET PO SCH ×2 (08:17→19:37)
[2019-03-04] MEDS: carvediloL 6.25 MG TABLET PO SCH ×2 (08:18→17:10)
[2019-03-04] MEDS: Chlorhexidine Rinse 15 ML MOUTHWASH MM SCH ×2 (08:18→19:59)
[2019-03-04] MEDS: Pantoprazole 40 MG VIAL IVP SCH (08:18)
[2019-03-04] MEDS: Artificial Tears SOLN 15 ML BOTTLE BOTH EYES SCH ×4 (08:19→19:59)
[2019-03-04] MEDS ORDERED: Potassium Chloride Elixir 20 MEQ/15 ML UDC PO ONE (10:36)
[2019-03-04 13:37] LABS: ABG Base Excess 6 mEq/L (-2 to 3); ABG HCO3 30 mEq/L (21-27); ABG Oxygen Saturation 96 % (95-98); ABG PCO2 45 mmHg (35-45); ABG PH 7.44 pH Units (7.32-7.45); ABG PO2 81 mmHg (85-104); ABG TCO2 32 mEq/L (20-26); Blood Gas Modality ASSIST CONTROL; Blood Gas VT 500 cc
[2019-03-04 13:48] LABS: ABG Base Excess 7 mEq/L (-2 to 3); ABG HCO3 30 mEq/L (21-27); ABG Oxygen Saturation 97 % (95-98); ABG PCO2 38 mmHg (35-45); ABG PO2 79 mmHg (85-104); ABG TCO2 31 mEq/L (20-26)
[2019-03-04] MEDS ORDERED: Isovue-370 500 ML BOTTLE IVP ONE (13:53)
[2019-03-04 14:38] LABS: Alanine Aminotransferase 86 Units/L (7-52); Albumin 2.8 g/dL (3.5-5.7); Albumin/Globulin Ratio 0.9 (1.1-2.2); Alkaline Phosphatase 77 Units/L (34-104); Aspartate Amino Transferase 102 Units/L (13-39); BUN/Creatinine Ratio 62 (6-26); Bilirubin,Direct 0.3 mg/dL (0.0-0.2); Bilirubin,Indirect 0.6 mg/dL (0.0-1.2); Bilirubin,Total 0.9 mg/dL (0.3-1.0); Blood Urea Nitrogen 32 mg/dL (6-20); Calcium 7.6 mg/dL (8.6-10.3); Carbon Dioxide 32 mEq/L (23-29); Chloride 114 mEq/L (98-107); Glucose 102 mg/dL (70-105); Osmolality,Calculated 315 (280-300); Potassium 3.5 mEq/L (3.5-5.1); Sodium 149 mEq/L (136-145); Total Protein 5.8 g/dL (6.4-8.9); eGFR For African Americans > 60 (> 60); eGFR For Non-African Americans > 60 (> 60)
[2019-03-04] MEDS ORDERED: D5% in Water 1,000 ML IVC SCH (16:15)
[2019-03-04] MEDS: Nitroglycerin 25 MG/250 ML INFUS..BTL IVC SCH (19:37)
[2019-03-04] MEDS: Norepinephrine 4 MG in D5% in Water 250 ML IVC SCH (19:39)
[2019-03-05] MEDS: Ipratropium/Albuterol Neb 3 ML IH SCH ×7 (00:20→23:52)
[2019-03-05] MEDS: Heparin 25,000 UNIT/250 ML D5W 25,000 UNIT/250 ML IV.SOLN IVC SCH (02:50)
[2019-03-05 04:00] LABS: Mean Platelet Volume 10.8 fL (9.4-12.4); Nucleated Red Blood Cells 0.1 /100 WBC (0)
[2019-03-05 04:02] LABS: Hematocrit 32.2 % (35.3-44.9); Hemoglobin 10.2 g/dL (11.5-15.4); Mean Corpuscular HGB Conc 31.7 g/dL (31.6-35.5); Mean Corpuscular Hemoglobin 29.1 pg (28.0-33.3); Mean Corpuscular Volume 91.7 fL (83.0-100.0); Platelet Count 315 K/mcL (140-400); Red Blood Count 3.51 M/mcL (3.82-4.97); Red Cell Distribution Width 16.2 % (11.5-14.5); White Blood Count 26.7 K/mcL (4.3-11.1)
[2019-03-05] MEDS: Insulin LISPRO 300 UNITS/3 ML VIAL SQ SCH ×6 (04:03→23:35)
[2019-03-05 04:08] LABS: INR 1.6; Prothrombin Time 18.3 Seconds (9.4-12.1)
[2019-03-05 04:22] LABS: BUN/Creatinine Ratio 45 (6-26); Blood Urea Nitrogen 21 mg/dL (6-20); Carbon Dioxide 31 mEq/L (23-29); Chloride 107 mEq/L (98-107); Glucose 130 mg/dL (70-105); Osmolality,Calculated 305 (280-300); Potassium 2.7 mEq/L (3.5-5.1); Sodium 145 mEq/L (136-145); eGFR For African Americans > 60 (> 60); eGFR For Non-African Americans > 60 (> 60)
[2019-03-05 04:38] LABS: Lymphocytes # 1.1 K/mcL (0.6-4.6); Monocytes # 1.1 K/mcL (0.0-1.3); Neutrophils # 24.6 K/mcL (1.6-8.9); Platelet Estimate Normal (Normal)
[2019-03-05] MEDS ORDERED: Isovue-370 500 ML BOTTLE IVP ONE ×2 (07:27→15:41)
[2019-03-05] MEDS: carvediloL 6.25 MG TABLET PO SCH ×2 (09:21→19:09)
[2019-03-05] MEDS: Artificial Tears SOLN 15 ML BOTTLE BOTH EYES SCH ×4 (09:22→20:25)
[2019-03-05] MEDS: *HR* Ticagrelor 90 MG TABLET PO SCH ×2 (09:22→20:24)
[2019-03-05] MEDS: Aspirin 81 MG TAB.CHEW PO SCH (09:22)
[2019-03-05] MEDS: Sennosides/Docusate Sodium TABLET PO SCH ×2 (09:22→20:24)
[2019-03-05] MEDS: MetroNIDAZOLE 500 MG/100 ML 500 MG/100 ML BAG IVPB SCH ×3 (09:23→23:34)
[2019-03-05] MEDS: Chlorhexidine Rinse 15 ML MOUTHWASH MM SCH ×2 (09:23→20:33)
[2019-03-05] MEDS: Pantoprazole 40 MG VIAL IVP SCH (09:23)
[2019-03-05] MEDS: Cefepime HCl 2,000 MG in Water for inj. (sterile) 20 ML IVP SCH ×3 (09:24→23:34)
[2019-03-05] MEDS: *HR* Metoprolol 5 MG/5 ML VIAL IVP SCH ×3 (19:05→23:35)
[2019-03-05] MEDS: Nitroglycerin 25 MG/250 ML INFUS..BTL IVC SCH (20:23)
[2019-03-05] MEDS ORDERED: *HR* FentaNYL (PF) 100 MCG/2 ML VIAL IVP ONE (23:54)
[2019-03-06] MEDS: Insulin LISPRO 300 UNITS/3 ML VIAL SQ SCH ×6 (03:48→23:30)
[2019-03-06] MEDS: Ipratropium/Albuterol Neb 3 ML IH SCH ×6 (03:51→23:54)
[2019-03-06 04:00] LABS: Basophils % 0.1 %; Eosinophils % 0.2 %; Hematocrit 33.1 % (35.3-44.9); Hemoglobin 10.5 g/dL (11.5-15.4); Immature Granulocytes % 1.9 % (0-4); Lymphocytes # 1.6 K/mcL (0.6-4.6); Lymphocytes % 6.5 %; Mean Corpuscular HGB Conc 31.7 g/dL (31.6-35.5); Mean Corpuscular Hemoglobin 28.8 pg (28.0-33.3); Mean Corpuscular Volume 90.9 fL (83.0-100.0); Mean Platelet Volume 10.9 fL (9.4-12.4); Monocytes # 1.7 K/mcL (0.0-1.3); Monocytes % 6.8 %; Neutrophils # 20.8 K/mcL (1.6-8.9); Nucleated Red Blood Cells 0.1 /100 WBC (0); Platelet Count 375 K/mcL (140-400); Red Blood Count 3.64 M/mcL (3.82-4.97); Red Cell Distribution Width 16.7 % (11.5-14.5); Segmented Neutrophils % 84.5 %; White Blood Count 24.6 K/mcL (4.3-11.1)
[2019-03-06 04:11] LABS: INR 2.1; Prothrombin Time 23.9 Seconds (9.4-12.1)
[2019-03-06 04:17] LABS: BUN/Creatinine Ratio 46 (6-26); Blood Urea Nitrogen 23 mg/dL (6-20); Carbon Dioxide 27 mEq/L (23-29); Chloride 112 mEq/L (98-107); Glucose 120 mg/dL (70-105); Osmolality,Calculated 307 (280-300); Potassium 2.7 mEq/L (3.5-5.1); Sodium 146 mEq/L (136-145); eGFR For African Americans > 60 (> 60); eGFR For Non-African Americans > 60 (> 60)
[2019-03-06] MEDS ORDERED: Potassium Phosphate 44 MEQ in 0.9 % Sodium Chloride 250 ML IVPB PRN (04:49)
[2019-03-06] MEDS ORDERED: Calcium Gluconate 1gm/50mL 1 GM/50 ML BAG IVPB PRN (04:49)
[2019-03-06 05:02] LABS: Magnesium 2.3 mg/dL (1.6-2.6); Phosphorous 3.7 mg/dL (2.7-4.5)
[2019-03-06] MEDS: Potassium Chloride 40 MEQ/200 ML BAG IVPB PRN ×2 (05:41→15:48)
[2019-03-06] MEDS: *HR* Metoprolol 5 MG/5 ML VIAL IVP SCH ×4 (05:41→23:29)
[2019-03-06] MEDS ORDERED: Haloperidol Lactate 5 MG/ML VIAL IVP ONE (08:06)
[2019-03-06] MEDS: Chlorhexidine Rinse 15 ML MOUTHWASH MM SCH ×2 (08:31→20:03)
[2019-03-06] MEDS: MetroNIDAZOLE 500 MG/100 ML 500 MG/100 ML BAG IVPB SCH ×3 (08:31→23:30)
[2019-03-06] MEDS: Cefepime HCl 2,000 MG in Water for inj. (sterile) 20 ML IVP SCH ×3 (08:31→23:29)
[2019-03-06] MEDS: Pantoprazole 40 MG VIAL IVP SCH (08:31)
[2019-03-06] MEDS: Artificial Tears SOLN 15 ML BOTTLE BOTH EYES SCH ×4 (08:32→20:03)
[2019-03-06] MEDS: *HR* Ticagrelor 90 MG TABLET PO SCH ×2 (08:54→20:03)
[2019-03-06] MEDS: Aspirin 81 MG TAB.CHEW PO SCH (08:54)
[2019-03-06] MEDS: carvediloL 6.25 MG TABLET PO SCH ×2 (08:54→17:11)
[2019-03-06] MEDS: Sennosides/Docusate Sodium TABLET PO SCH ×2 (08:54→20:04)
[2019-03-06] MEDS: Gabapentin 100 MG CAPSULE PO SCH ×3 (10:22→20:03)
[2019-03-06] MEDS: Heparin 25,000 UNIT/250 ML D5W 25,000 UNIT/250 ML IV.SOLN IVC SCH (11:57)
[2019-03-06] MEDS: Nitroglycerin 25 MG/250 ML INFUS..BTL IVC SCH (20:03)
[2019-03-06] MEDS: Dexmedetomidine HCl 400 MCG/100 ML MLS IVC SCH (23:30)
[2019-03-07] MEDS: Potassium Chloride 40 MEQ/200 ML BAG IVPB PRN ×3 (01:31→15:35)
[2019-03-07] MEDS: Ipratropium/Albuterol Neb 3 ML IH SCH ×6 (03:51→23:48)
[2019-03-07] MEDS: Insulin LISPRO 300 UNITS/3 ML VIAL SQ SCH ×6 (04:40→23:48)
[2019-03-07 04:41] LABS: VBG Ionized Calcium 1.12 mmol/L (1.15-1.35)
[2019-03-07 04:41] LABS: Basophils % 0.1 %; Eosinophils # 0.1 K/mcL (0.0-0.6); Eosinophils % 0.4 %; Hematocrit 32.3 % (35.3-44.9); Immature Granulocytes % 1.1 % (0-4); Lymphocytes % 8.9 %; Mean Corpuscular Hemoglobin 28.6 pg (28.0-33.3); Mean Corpuscular Volume 92.3 fL (83.0-100.0); Mean Platelet Volume 10.9 fL (9.4-12.4); Monocytes # 1.7 K/mcL (0.0-1.3); Monocytes % 7.7 %; Neutrophils # 17.9 K/mcL (1.6-8.9); Platelet Count 384 K/mcL (140-400); Red Cell Distribution Width 17.1 % (11.5-14.5); Segmented Neutrophils % 81.8 %; White Blood Count 21.8 K/mcL (4.3-11.1)
[2019-03-07 04:50] LABS: INR 2.5; Prothrombin Time 28.5 Seconds (9.4-12.1)
[2019-03-07 05:01] LABS: BUN/Creatinine Ratio 49 (6-26); Blood Urea Nitrogen 24 mg/dL (6-20); Calcium 7.9 mg/dL (8.6-10.3); Carbon Dioxide 26 mEq/L (23-29); Chloride 113 mEq/L (98-107); Glucose 112 mg/dL (70-105); Magnesium 2.3 mg/dL (1.6-2.6); Osmolality,Calculated 311 (280-300); Phosphorous 2.9 mg/dL (2.7-4.5); Potassium 3.6 mEq/L (3.5-5.1); Sodium 148 mEq/L (136-145); eGFR For African Americans > 60 (> 60); eGFR For Non-African Americans > 60 (> 60)
[2019-03-07] MEDS: *HR* Metoprolol 5 MG/5 ML VIAL IVP SCH ×4 (05:14→23:48)
[2019-03-07 08:00] LABS: Alanine Aminotransferase 40 Units/L (7-52); Albumin 2.8 g/dL (3.5-5.7); Alkaline Phosphatase 61 Units/L (34-104); Aspartate Amino Transferase 35 Units/L (13-39); Bilirubin,Direct 0.3 mg/dL (0.0-0.2); Bilirubin,Indirect 0.4 mg/dL (0.0-1.2); Bilirubin,Total 0.7 mg/dL (0.3-1.0); Globulin 2.8 g/dL (2.4-3.5); Total Protein 5.6 g/dL (6.4-8.9)
[2019-03-07] MEDS: D5% in Water 1,000 ML IVC SCH (09:18)
[2019-03-07] MEDS: Pantoprazole 40 MG VIAL IVP SCH (09:19)
[2019-03-07] MEDS: Cefepime HCl 2,000 MG in Water for inj. (sterile) 20 ML IVP SCH ×3 (09:19→23:48)
[2019-03-07] MEDS: Sennosides/Docusate Sodium TABLET PO SCH ×2 (09:19→19:49)
[2019-03-07] MEDS: MetroNIDAZOLE 500 MG/100 ML 500 MG/100 ML BAG IVPB SCH ×3 (09:19→23:47)
[2019-03-07] MEDS: Gabapentin 100 MG CAPSULE PO SCH ×3 (09:19→20:07)
[2019-03-07] MEDS: carvediloL 6.25 MG TABLET PO SCH ×2 (09:20→17:51)
[2019-03-07] MEDS: Artificial Tears SOLN 15 ML BOTTLE BOTH EYES SCH ×4 (09:20→20:08)
[2019-03-07] MEDS: Aspirin 81 MG TAB.CHEW PO SCH (09:20)
[2019-03-07] MEDS: Chlorhexidine Rinse 15 ML MOUTHWASH MM SCH ×2 (09:20→20:07)
[2019-03-07] MEDS: *HR* Ticagrelor 90 MG TABLET PO SCH ×2 (09:20→20:07)
[2019-03-07] MEDS ORDERED: *HR* OxyCODONE/APAP 10/325 TABLET PO PRN (11:46)
[2019-03-07] MEDS: Heparin 25,000 UNIT/250 ML D5W 25,000 UNIT/250 ML IV.SOLN IVC SCH (12:17)
[2019-03-07] MEDS: Dexmedetomidine HCl 400 MCG/100 ML MLS IVC SCH (17:52)
[2019-03-07] MEDS: Nitroglycerin 25 MG/250 ML INFUS..BTL IVC SCH (19:49)
[2019-03-08] MEDS: Ipratropium/Albuterol Neb 3 ML IH SCH ×5 (03:37→20:14)
[2019-03-08 03:39] LABS: Basophils % 0.1 %; Eosinophils # 0.2 K/mcL (0.0-0.6); Eosinophils % 0.9 %; Hemoglobin 9.2 g/dL (11.5-15.4); Immature Granulocytes % 1.4 % (0-4); Lymphocytes # 2.1 K/mcL (0.6-4.6); Mean Corpuscular HGB Conc 30.7 g/dL (31.6-35.5); Mean Corpuscular Hemoglobin 28.5 pg (28.0-33.3); Mean Corpuscular Volume 92.9 fL (83.0-100.0); Mean Platelet Volume 10.8 fL (9.4-12.4); Monocytes # 1.4 K/mcL (0.0-1.3); Monocytes % 6.6 %; Neutrophils # 16.8 K/mcL (1.6-8.9); Platelet Count 340 K/mcL (140-400); Red Blood Count 3.23 M/mcL (3.82-4.97); Red Cell Distribution Width 16.3 % (11.5-14.5); White Blood Count 20.7 K/mcL (4.3-11.1)
[2019-03-08 03:44] LABS: INR 2.8
[2019-03-08 04:08] LABS: BUN/Creatinine Ratio 47 (6-26); Blood Urea Nitrogen 20 mg/dL (6-20); Calcium 7.8 mg/dL (8.6-10.3); Carbon Dioxide 24 mEq/L (23-29); Chloride 111 mEq/L (98-107); Glucose 105 mg/dL (70-105); Magnesium 1.9 mg/dL (1.6-2.6); Osmolality,Calculated 293 (280-300); Potassium 3.5 mEq/L (3.5-5.1); Sodium 140 mEq/L (136-145); eGFR For African Americans > 60 (> 60); eGFR For Non-African Americans > 60 (> 60)
[2019-03-08] MEDS: Insulin LISPRO 300 UNITS/3 ML VIAL SQ SCH ×5 (04:31→19:59)
[2019-03-08] MEDS: *HR* Metoprolol 5 MG/5 ML VIAL IVP SCH (05:04)
[2019-03-08] MEDS: D5% in Water 1,000 ML IVC SCH (05:04)
[2019-03-08] MEDS: Potassium Chloride 40 MEQ/200 ML BAG IVPB PRN ×2 (05:04→18:25)
[2019-03-08] MEDS: Gabapentin 100 MG CAPSULE PO SCH ×3 (08:51→19:49)
[2019-03-08] MEDS: Aspirin 81 MG TAB.CHEW PO SCH (08:51)
[2019-03-08] MEDS: MetroNIDAZOLE 500 MG/100 ML 500 MG/100 ML BAG IVPB SCH ×2 (08:52→15:25)
[2019-03-08] MEDS: carvediloL 6.25 MG TABLET PO SCH ×2 (08:52→16:42)
[2019-03-08] MEDS: Cefepime HCl 2,000 MG in Water for inj. (sterile) 20 ML IVP SCH ×2 (08:52→15:24)
[2019-03-08] MEDS: Pantoprazole 40 MG VIAL IVP SCH (08:52)
[2019-03-08] MEDS: *HR* Ticagrelor 90 MG TABLET PO SCH ×2 (08:52→19:48)
[2019-03-08] MEDS: Chlorhexidine Rinse 15 ML MOUTHWASH MM SCH (08:53)
[2019-03-08] MEDS: Sennosides/Docusate Sodium TABLET PO SCH ×2 (08:53→19:48)
[2019-03-08] MEDS: Artificial Tears SOLN 15 ML BOTTLE BOTH EYES SCH (08:53)
[2019-03-08] MEDS ORDERED: Potassium Phosphate 44 MEQ in 0.9 % Sodium Chloride 250 ML IVPB PRN (09:53)
[2019-03-08] MEDS ORDERED: D5% in Water 1,000 ML IVC PRN (09:53)
[2019-03-08] MEDS ORDERED: *HR* Dextrose 50 % in Water (Syg) 50 ML SYRINGE IVP PRN (09:53)
[2019-03-08] MEDS ORDERED: Ondansetron 4 MG/2 ML VIAL IVP PRN (09:53)
[2019-03-08] MEDS ORDERED: Acetaminophen 325 MG TABLET PO PRN (09:53)
[2019-03-08] MEDS ORDERED: Naloxone 0.4 MG/ML INJ IVP PRN (09:53)
[2019-03-08] MEDS ORDERED: Calcium Gluconate 1gm/50mL 1 GM/50 ML BAG IVPB PRN (09:53)
[2019-03-08] MEDS ORDERED: Dextrose Gel 15 GM/37.5 ML TUBE PO PRN ×2 (09:53)
[2019-03-08] MEDS ORDERED: Insulin LISPRO 300 UNITS/3 ML VIAL SQ SCH ×2 (11:30→21:00)
[2019-03-09] MEDS: Cefepime HCl 2,000 MG in Water for inj. (sterile) 20 ML IVP SCH ×3 (00:14→17:43)
[2019-03-09] MEDS: MetroNIDAZOLE 500 MG/100 ML 500 MG/100 ML BAG IVPB SCH ×2 (00:14→07:58)
[2019-03-09] MEDS: Ipratropium/Albuterol Neb 3 ML IH SCH ×3 (00:17→08:00)
[2019-03-09 05:16] LABS: VBG Ionized Calcium 1.11 mmol/L (1.15-1.35)
[2019-03-09 05:27] LABS: BUN/Creatinine Ratio 38 (6-26); Blood Urea Nitrogen 16 mg/dL (6-20); Calcium 8.1 mg/dL (8.6-10.3); Carbon Dioxide 22 mEq/L (23-29); Chloride 106 mEq/L (98-107); Glucose 92 mg/dL (70-105); Magnesium 1.8 mg/dL (1.6-2.6); Osmolality,Calculated 283 (280-300); Phosphorous 3.3 mg/dL (2.7-4.5); Potassium 3.4 mEq/L (3.5-5.1); Sodium 136 mEq/L (136-145); eGFR For African Americans > 60 (> 60); eGFR For Non-African Americans > 60 (> 60)
[2019-03-09] MEDS: Potassium Chloride 40 MEQ/200 ML BAG IVPB PRN ×2 (06:06→07:50)
[2019-03-09] MEDS: Aspirin 81 MG TAB.CHEW PO SCH (07:55)
[2019-03-09] MEDS: Sennosides/Docusate Sodium TABLET PO SCH ×2 (07:55→21:38)
[2019-03-09] MEDS: Gabapentin 100 MG CAPSULE PO SCH ×3 (07:56→21:39)
[2019-03-09] MEDS: *HR* Ticagrelor 90 MG TABLET PO SCH ×2 (07:56→21:39)
[2019-03-09] MEDS: carvediloL 6.25 MG TABLET PO SCH ×2 (07:57→17:43)
[2019-03-09] MEDS: Insulin LISPRO 300 UNITS/3 ML VIAL SQ SCH ×4 (07:59→21:39)
[2019-03-09] MEDS ORDERED: Potassium Chloride Elixir 20 MEQ/15 ML UDC PO ONE (09:39)
[2019-03-09] MEDS ORDERED: Ipratropium/Albuterol Neb 3 ML IH PRN (10:37)
[2019-03-09 10:58] LABS: ANA IgG by ELISA NONE DETECTED (None Detected); Serine Protease-3 Antibody 0 AU/mL (0-19)
[2019-03-09] MEDS ORDERED: Gadolinium Contrast Agent (WT Based) IV PRN (10:58)
[2019-03-09 11:42] LABS: Basophils % 0.2 %; Eosinophils # 0.2 K/mcL (0.0-0.6); Hematocrit 29.7 % (35.3-44.9); Hemoglobin 9.5 g/dL (11.5-15.4); Immature Granulocytes % 0.7 % (0-4); Lymphocytes # 1.9 K/mcL (0.6-4.6); Lymphocytes % 9.8 %; Mean Corpuscular Volume 90.5 fL (83.0-100.0); Mean Platelet Volume 11.1 fL (9.4-12.4); Monocytes # 1.2 K/mcL (0.0-1.3); Monocytes % 6.2 %; Neutrophils # 15.6 K/mcL (1.6-8.9); Platelet Count 338 K/mcL (140-400); Red Blood Count 3.28 M/mcL (3.82-4.97); Red Cell Distribution Width 15.9 % (11.5-14.5); Segmented Neutrophils % 82.1 %
[2019-03-09] MEDS: metroNIDAZOLE 500 MG TABLET PO SCH ×2 (17:42→21:38)
[2019-03-09 17:45] LABS: INR 3.2; Prothrombin Time 36.7 Seconds (9.4-12.1)
[2019-03-09] MEDS ORDERED: Warfarin perPT PO PRN (18:00)
[2019-03-10] MEDS: Cefepime HCl 2,000 MG in Water for inj. (sterile) 20 ML IVP SCH ×3 (00:43→16:30)
[2019-03-10 03:34] LABS: Basophils % 0.1 %; Eosinophils # 0.2 K/mcL (0.0-0.6); Eosinophils % 0.9 %; Hematocrit 30.8 % (35.3-44.9); Hemoglobin 9.8 g/dL (11.5-15.4); Immature Granulocytes % 0.6 % (0-4); Lymphocytes # 1.9 K/mcL (0.6-4.6); Lymphocytes % 8.9 %; Mean Corpuscular HGB Conc 31.8 g/dL (31.6-35.5); Mean Corpuscular Hemoglobin 29.3 pg (28.0-33.3); Mean Corpuscular Volume 92.2 fL (83.0-100.0); Monocytes # 1.3 K/mcL (0.0-1.3); Monocytes % 6.4 %; Neutrophils # 17.4 K/mcL (1.6-8.9); Platelet Count 383 K/mcL (140-400); Red Blood Count 3.34 M/mcL (3.82-4.97); Red Cell Distribution Width 15.9 % (11.5-14.5); Segmented Neutrophils % 83.1 %; White Blood Count 20.9 K/mcL (4.3-11.1)
[2019-03-10 03:48] LABS: Alanine Aminotransferase 28 Units/L (7-52); Albumin 2.8 g/dL (3.5-5.7); Alkaline Phosphatase 52 Units/L (34-104); Aspartate Amino Transferase 25 Units/L (13-39); BUN/Creatinine Ratio 30 (6-26); Bilirubin,Total 0.6 mg/dL (0.3-1.0); Blood Urea Nitrogen 13 mg/dL (6-20); Carbon Dioxide 23 mEq/L (23-29); Chloride 103 mEq/L (98-107); Globulin 2.8 g/dL (2.4-3.5); Glucose 96 mg/dL (70-105); Magnesium 1.9 mg/dL (1.6-2.6); Osmolality,Calculated 280 (280-300); Potassium 3.6 mEq/L (3.5-5.1); Sodium 135 mEq/L (136-145); Total Protein 5.6 g/dL (6.4-8.9); eGFR For African Americans > 60 (> 60); eGFR For Non-African Americans > 60 (> 60)
[2019-03-10 06:54] LABS: Urine Collection Volume RANDOM mL
[2019-03-10] MEDS: Insulin LISPRO 300 UNITS/3 ML VIAL SQ SCH ×4 (07:24→19:51)
[2019-03-10] MEDS: *HR* Ticagrelor 90 MG TABLET PO SCH ×2 (07:53→19:57)
[2019-03-10] MEDS: metroNIDAZOLE 500 MG TABLET PO SCH ×3 (07:53→19:56)
[2019-03-10] MEDS: Gabapentin 100 MG CAPSULE PO SCH ×3 (07:53→19:56)
[2019-03-10] MEDS: Sennosides/Docusate Sodium TABLET PO SCH ×2 (07:53→19:56)
[2019-03-10] MEDS: Aspirin 81 MG TAB.CHEW PO SCH (07:53)
[2019-03-10] MEDS: carvediloL 6.25 MG TABLET PO SCH ×2 (07:54→16:29)
[2019-03-10] MEDS ORDERED: Warfarin perPT PO PRN (11:02)
[2019-03-10 11:19] LABS: Prothrombin Time 34.6 Seconds (9.4-12.1)
[2019-03-10] MEDS ORDERED: Potassium Chloride Elixir 20 MEQ/15 ML UDC PO ONE (14:39)
[2019-03-10] MEDS ORDERED: *HR* Warfarin 2 MG TABLET PO ONE (18:00)
[2019-03-11] MEDS: Cefepime HCl 2,000 MG in Water for inj. (sterile) 20 ML IVP SCH ×2 (00:32→09:05)
[2019-03-11 05:38] LABS: Basophils % 0.1 %; Eosinophils # 0.3 K/mcL (0.0-0.6); Eosinophils % 1.5 %; Hematocrit 29.5 % (35.3-44.9); Hemoglobin 9.6 g/dL (11.5-15.4); Immature Granulocytes % 0.8 % (0-4); Mean Corpuscular HGB Conc 32.5 g/dL (31.6-35.5); Mean Corpuscular Hemoglobin 29.4 pg (28.0-33.3); Mean Corpuscular Volume 90.2 fL (83.0-100.0); Mean Platelet Volume 10.8 fL (9.4-12.4); Monocytes # 1.5 K/mcL (0.0-1.3); Monocytes % 8.3 %; Neutrophils # 14.6 K/mcL (1.6-8.9); Platelet Count 427 K/mcL (140-400); Red Blood Count 3.27 M/mcL (3.82-4.97); Red Cell Distribution Width 16.5 % (11.5-14.5); Segmented Neutrophils % 78.3 %; White Blood Count 18.6 K/mcL (4.3-11.1)
[2019-03-11 05:46] LABS: Prothrombin Time 33.9 Seconds (9.4-12.1)
[2019-03-11 05:58] LABS: Alanine Aminotransferase 23 Units/L (7-52); Albumin 2.8 g/dL (3.5-5.7); Albumin/Globulin Ratio 0.9 (1.1-2.2); Alkaline Phosphatase 61 Units/L (34-104); Aspartate Amino Transferase 21 Units/L (13-39); BUN/Creatinine Ratio 39 (6-26); Bilirubin,Total 0.5 mg/dL (0.3-1.0); Blood Urea Nitrogen 16 mg/dL (6-20); Carbon Dioxide 23 mEq/L (23-29); Chloride 104 mEq/L (98-107); Globulin 3.2 g/dL (2.4-3.5); Glucose 121 mg/dL (70-105); Osmolality,Calculated 284 (280-300); Potassium 3.3 mEq/L (3.5-5.1); Sodium 136 mEq/L (136-145); eGFR For African Americans > 60 (> 60); eGFR For Non-African Americans > 60 (> 60)
[2019-03-11] MEDS ORDERED: Aminoglycoside Consult 1 EACH MC ONE (08:47)
[2019-03-11] MEDS: Sennosides/Docusate Sodium TABLET PO SCH ×2 (09:03→21:02)
[2019-03-11] MEDS: carvediloL 6.25 MG TABLET PO SCH ×2 (09:03→16:20)
[2019-03-11] MEDS: Insulin LISPRO 300 UNITS/3 ML VIAL SQ SCH ×3 (09:03→16:21)
[2019-03-11] MEDS: Aspirin 81 MG TAB.CHEW PO SCH (09:04)
[2019-03-11] MEDS: Gabapentin 100 MG CAPSULE PO SCH ×3 (09:04→21:02)
[2019-03-11] MEDS: metroNIDAZOLE 500 MG TABLET PO SCH (09:05)
[2019-03-11] MEDS: *HR* Ticagrelor 90 MG TABLET PO SCH ×2 (09:05→21:02)
[2019-03-11] MEDS ORDERED: Chloraseptic Spray 177 ML BOTTLE MM PRN (13:52)
[2019-03-11] MEDS ORDERED: *HR* Warfarin 2 MG TABLET PO ONE (18:00)
[2019-03-12 04:38] LABS: Basophils % 0.2 %; Eosinophils # 0.3 K/mcL (0.0-0.6); Eosinophils % 2.2 %; Hematocrit 28.9 % (35.3-44.9); Hemoglobin 9.3 g/dL (11.5-15.4); Immature Granulocytes % 0.6 % (0-4); Lymphocytes # 2.3 K/mcL (0.6-4.6); Lymphocytes % 15.1 %; Mean Corpuscular HGB Conc 32.2 g/dL (31.6-35.5); Mean Corpuscular Hemoglobin 29.1 pg (28.0-33.3); Mean Corpuscular Volume 90.3 fL (83.0-100.0); Mean Platelet Volume 10.3 fL (9.4-12.4); Monocytes # 1.1 K/mcL (0.0-1.3); Monocytes % 7.5 %; Neutrophils # 11.2 K/mcL (1.6-8.9); Platelet Count 394 K/mcL (140-400); Red Cell Distribution Width 16.8 % (11.5-14.5); Segmented Neutrophils % 74.4 %
[2019-03-12 04:42] LABS: VBG Ionized Calcium 1.14 mmol/L (1.15-1.35)
[2019-03-12 04:45] LABS: INR 2.3; Prothrombin Time 26.6 Seconds (9.4-12.1)
[2019-03-12 05:00] LABS: BUN/Creatinine Ratio 22 (6-26); Blood Urea Nitrogen 11 mg/dL (6-20); Calcium 8.1 mg/dL (8.6-10.3); Carbon Dioxide 23 mEq/L (23-29); Chloride 103 mEq/L (98-107); Glucose 103 mg/dL (70-105); Osmolality,Calculated 282 (280-300); Potassium 3.5 mEq/L (3.5-5.1); Sodium 136 mEq/L (136-145); eGFR For African Americans > 60 (> 60); eGFR For Non-African Americans > 60 (> 60)
[2019-03-12] MEDS: Aspirin 81 MG TAB.CHEW PO SCH (07:33)
[2019-03-12] MEDS: carvediloL 6.25 MG TABLET PO SCH ×2 (07:33→16:52)
[2019-03-12] MEDS: Gabapentin 100 MG CAPSULE PO SCH ×3 (07:34→20:15)
[2019-03-12] MEDS: *HR* Ticagrelor 90 MG TABLET PO SCH ×2 (07:34→20:16)
[2019-03-12] MEDS: Sennosides/Docusate Sodium TABLET PO SCH ×2 (07:34→20:16)
[2019-03-12] MEDS ORDERED: *HR* Warfarin 4 MG TABLET PO ONE (18:00)
[2019-03-13 05:18] LABS: INR 2.6; Prothrombin Time 29.4 Seconds (9.4-12.1)
[2019-03-13] MEDS: Aspirin 81 MG TAB.CHEW PO SCH (08:52)
[2019-03-13] MEDS: Gabapentin 100 MG CAPSULE PO SCH ×3 (08:52→21:03)
[2019-03-13] MEDS: Sennosides/Docusate Sodium TABLET PO SCH ×2 (08:52→21:04)
[2019-03-13] MEDS: *HR* Ticagrelor 90 MG TABLET PO SCH ×2 (08:52→21:03)
[2019-03-13] MEDS: carvediloL 6.25 MG TABLET PO SCH ×2 (08:52→16:31)
[2019-03-13] MEDS ORDERED: *HR* Warfarin 4 MG TABLET PO ONE (18:00)
[2019-03-13] MEDS: *HR* OxyCODONE/APAP 10/325 TABLET PO PRN (21:20)
[2019-03-14 08:01] LABS: Basophils % 0.2 %; Eosinophils # 0.2 K/mcL (0.0-0.6); Eosinophils % 1.8 %; Hematocrit 30.8 % (35.3-44.9); Hemoglobin 9.9 g/dL (11.5-15.4); Immature Granulocytes % 0.4 % (0-4); Lymphocytes # 1.4 K/mcL (0.6-4.6); Lymphocytes % 11.3 %; Mean Corpuscular HGB Conc 32.1 g/dL (31.6-35.5); Mean Corpuscular Hemoglobin 29.2 pg (28.0-33.3); Mean Corpuscular Volume 90.9 fL (83.0-100.0); Monocytes # 0.8 K/mcL (0.0-1.3); Monocytes % 6.1 %; Platelet Count 341 K/mcL (140-400); Red Blood Count 3.39 M/mcL (3.82-4.97); Red Cell Distribution Width 17.1 % (11.5-14.5); Segmented Neutrophils % 80.2 %; White Blood Count 12.5 K/mcL (4.3-11.1)
[2019-03-14 08:06] LABS: INR 3.2
[2019-03-14 08:18] LABS: BUN/Creatinine Ratio 24 (6-26); Blood Urea Nitrogen 10 mg/dL (6-20); Calcium 8.5 mg/dL (8.6-10.3); Carbon Dioxide 27 mEq/L (23-29); Chloride 100 mEq/L (98-107); Glucose 121 mg/dL (70-105); Magnesium 1.7 mg/dL (1.6-2.6); Osmolality,Calculated 280 (280-300); Potassium 3.6 mEq/L (3.5-5.1); Sodium 135 mEq/L (136-145); eGFR For African Americans > 60 (> 60); eGFR For Non-African Americans > 60 (> 60)
[2019-03-14] MEDS: Sennosides/Docusate Sodium TABLET PO SCH ×2 (08:33→21:34)
[2019-03-14] MEDS: carvediloL 6.25 MG TABLET PO SCH ×2 (08:33→17:11)
[2019-03-14] MEDS: Aspirin 81 MG TAB.CHEW PO SCH (08:34)
[2019-03-14] MEDS: Gabapentin 100 MG CAPSULE PO SCH ×3 (08:34→21:34)
[2019-03-14] MEDS: *HR* Ticagrelor 90 MG TABLET PO SCH ×2 (08:34→21:34)
[2019-03-15] MEDS: *HR* OxyCODONE/APAP 10/325 TABLET PO PRN ×2 (03:48→19:00)
[2019-03-15] MEDS: Gabapentin 100 MG CAPSULE PO SCH ×3 (09:15→20:37)
[2019-03-15] MEDS: carvediloL 6.25 MG TABLET PO SCH ×2 (09:15→17:17)
[2019-03-15] MEDS: Aspirin 81 MG TAB.CHEW PO SCH (09:15)
[2019-03-15] MEDS: Sennosides/Docusate Sodium TABLET PO SCH ×2 (09:15→20:37)
[2019-03-15] MEDS: *HR* Ticagrelor 90 MG TABLET PO SCH ×2 (09:15→20:37)
[2019-03-15 10:33] LABS: Basophils % 0.3 %; Eosinophils # 0.3 K/mcL (0.0-0.6); Eosinophils % 2.7 %; Hematocrit 31.9 % (35.3-44.9); Hemoglobin 10.5 g/dL (11.5-15.4); Immature Granulocytes % 0.4 % (0-4); Lymphocytes # 1.6 K/mcL (0.6-4.6); Lymphocytes % 13.9 %; Mean Corpuscular HGB Conc 32.9 g/dL (31.6-35.5); Mean Corpuscular Hemoglobin 29.7 pg (28.0-33.3); Mean Corpuscular Volume 90.4 fL (83.0-100.0); Mean Platelet Volume 9.8 fL (9.4-12.4); Monocytes # 0.7 K/mcL (0.0-1.3); Monocytes % 5.6 %; Platelet Count 349 K/mcL (140-400); Red Blood Count 3.53 M/mcL (3.82-4.97); Red Cell Distribution Width 17.4 % (11.5-14.5); Segmented Neutrophils % 77.1 %; White Blood Count 11.6 K/mcL (4.3-11.1)
[2019-03-15 13:30] LABS: Prothrombin Time 45.3 Seconds (9.4-12.1)
[2019-03-16 06:56] LABS: INR 2.1; Prothrombin Time 24.4 Seconds (9.4-12.1)
[2019-03-16] MEDS: *HR* Ticagrelor 90 MG TABLET PO SCH ×2 (08:29→21:52)
[2019-03-16] MEDS: *HR* OxyCODONE/APAP 10/325 TABLET PO PRN ×2 (08:30→21:51)
[2019-03-16] MEDS: Aspirin 81 MG TAB.CHEW PO SCH (08:30)
[2019-03-16] MEDS: Gabapentin 100 MG CAPSULE PO SCH ×3 (08:30→21:51)
[2019-03-16] MEDS: Sennosides/Docusate Sodium TABLET PO SCH ×2 (08:30→21:52)
[2019-03-16] MEDS: carvediloL 6.25 MG TABLET PO SCH ×2 (08:30→16:31)
[2019-03-16 08:48] LABS: Basophils % 0.3 %; Eosinophils # 0.4 K/mcL (0.0-0.6); Eosinophils % 3.1 %; Hematocrit 31.5 % (35.3-44.9); Immature Granulocytes % 0.4 % (0-4); Lymphocytes # 1.6 K/mcL (0.6-4.6); Lymphocytes % 13.8 %; Mean Corpuscular HGB Conc 31.7 g/dL (31.6-35.5); Mean Corpuscular Hemoglobin 29.4 pg (28.0-33.3); Mean Corpuscular Volume 92.6 fL (83.0-100.0); Monocytes # 0.6 K/mcL (0.0-1.3); Neutrophils # 8.9 K/mcL (1.6-8.9); Platelet Count 334 K/mcL (140-400); Red Cell Distribution Width 17.4 % (11.5-14.5); Segmented Neutrophils % 77.4 %; White Blood Count 11.4 K/mcL (4.3-11.1)
[2019-03-16] MEDS ORDERED: *HR* Warfarin 2 MG TABLET PO ONE (18:00)
[2019-03-17 05:55] LABS: Basophils # 0.1 K/mcL (0.0-0.2); Basophils % 0.5 %; Eosinophils # 0.5 K/mcL (0.0-0.6); Eosinophils % 4.9 %; Hematocrit 32.7 % (35.3-44.9); Hemoglobin 10.2 g/dL (11.5-15.4); Immature Granulocytes % 0.4 % (0-4); Lymphocytes # 1.7 K/mcL (0.6-4.6); Lymphocytes % 16.8 %; Mean Corpuscular HGB Conc 31.2 g/dL (31.6-35.5); Mean Corpuscular Hemoglobin 29.1 pg (28.0-33.3); Mean Corpuscular Volume 93.2 fL (83.0-100.0); Mean Platelet Volume 9.7 fL (9.4-12.4); Monocytes # 0.7 K/mcL (0.0-1.3); Monocytes % 6.9 %; Neutrophils # 7.3 K/mcL (1.6-8.9); Platelet Count 348 K/mcL (140-400); Red Blood Count 3.51 M/mcL (3.82-4.97); Red Cell Distribution Width 17.3 % (11.5-14.5); Segmented Neutrophils % 70.5 %; White Blood Count 10.4 K/mcL (4.3-11.1)
[2019-03-17 05:59] LABS: INR 1.5; Prothrombin Time 16.9 Seconds (9.4-12.1)
[2019-03-17] MEDS: carvediloL 6.25 MG TABLET PO SCH (07:36)
[2019-03-17] MEDS: *HR* Ticagrelor 90 MG TABLET PO SCH (07:36)
[2019-03-17] MEDS: Aspirin 81 MG TAB.CHEW PO SCH (07:36)
[2019-03-17] MEDS: Gabapentin 100 MG CAPSULE PO SCH ×2 (07:36→15:10)
[2019-03-17] MEDS: Sennosides/Docusate Sodium TABLET PO SCH (07:36)
[2019-03-17 12:11] VITALS: BP 117/80
[2019-03-17] MEDS ORDERED: *HR* Warfarin 2 MG TABLET PO ONE (18:00)
== END 2019-03-17 17:01 | DRG 853 ==
LOC: 2NNU → SUATTDRO 11:31 → ICNU 19:41 → 2NNU 03-08 10:55 → 2ANU 03-11 11:59
PROVIDERS: ADMIT Internal Medicine; ATTEND Internal Medicine

== ENCOUNTER 2019-09-28 08:39 | Inpatient (IN) ==
[~2019-09-28 08:39] MED LIST: ceFAZolin 1,000 MG, Sodium Chloride IRRigation 1,000 ML IR ONE
[2019-09-28] MEDS ORDERED: Ringers Solution, Lactated 1,000 ML IVC SCH (09:00)
[2019-09-28] MEDS ORDERED: *HR* Labetalol 20 MG/4 ML SYRINGE IVP PRN ×2 (09:24→17:54)
[2019-09-28] MEDS ORDERED: Famotidine 20 MG/2 ML VIAL IVP ONE (09:24)
[2019-09-28] MEDS ORDERED: *HR* OxyCODONE Immed Rel 5 MG TABLET PO PRN (09:24)
[2019-09-28] MEDS ORDERED: *HR* Promethazine 25 MG/ML VIAL IVP PRN (09:24)
[2019-09-28] MEDS ORDERED: *HR* HYDROmorphone 2 MG TABLET PO PRN (09:24)
[2019-09-28] MEDS ORDERED: Pregabalin 75 MG CAPSULE PO ONE (09:24)
[2019-09-28] MEDS ORDERED: *HR* HYDROmorphone (PF) 1 MG/ML SYRINGE IVP PRN (09:24)
[2019-09-28] MEDS ORDERED: Albuterol 2.5 MG/3 ML NEBULIZER IH ONE (09:24)
[2019-09-28] MEDS ORDERED: Acetaminophen IV 1,000 MG/100 ML INFUS..BTL IVPB ONE (09:24)
[2019-09-28] MEDS ORDERED: *HR* Midazolam HCl 2 MG/2 ML VIAL ONE (09:27)
[2019-09-28] MEDS ORDERED: *HR* Propofol 200 MG/20 ML VIAL IVP ONE (09:27)
[2019-09-28] MEDS ORDERED: *HR* FentaNYL (PF) 100 MCG/2 ML VIAL ONE ×2 (09:27→14:01)
[2019-09-28] MEDS ORDERED: *HR* Succinylcholine 200 MG/10 ML VIAL IVP ONE (09:30)
[2019-09-28] MEDS ORDERED: Lidocaine -MPF 2% 2 ML VIAL ONE (09:30)
[2019-09-28] MEDS ORDERED: Dexamethasone 4 MG/ML VIAL ONE (09:30)
[2019-09-28] MEDS ORDERED: Ondansetron 4 MG/2 ML VIAL ONE (09:30)
[2019-09-28] MEDS ORDERED: Lidocaine HCL 4 ML Topical Solution (Laryng-O-Jet Kit Sterile Pak) TP ONE (09:30)
[2019-09-28] MEDS ORDERED: *HR* Rocuronium Bromide 50 MG/5 ML VIAL ONE (09:30)
[2019-09-28] MEDS ORDERED: CeFAZolin Syr 2,000MG/20 ML 2,000 MG/20 ML SYRINGE IVPB ONE (10:24)
[2019-09-28] MEDS ORDERED: Heparin 1,000 UNITS/500 mL 500 ML ONE ×2 (10:54→11:31)
[2019-09-28] MEDS ORDERED: Aspirin Enteric Coated 325 MG Tablet PO ONE (11:03)
[2019-09-28] MEDS ORDERED: EPHEDrine 50 MG/ML VIAL ONE (12:39)
[2019-09-28] MEDS ORDERED: Neostigmine Methylsulfate 3 MG/3 ML SYRINGE ONE (16:03)
[2019-09-28] MEDS ORDERED: Ondansetron 4 MG/2 ML VIAL IVP PRN (17:54)
[2019-09-28] MEDS ORDERED: Naloxone 0.4 MG/ML INJ IVP PRN (17:54)
[2019-09-28] MEDS ORDERED: *HR* HYDROcodone/Acet 5/325 mg TABLET PO PRN (17:54)
[2019-09-28] MEDS ORDERED: Acetaminophen 325 MG TABLET PO PRN (17:54)
[2019-09-28] MEDS ORDERED: tiZANidine 4 MG TABLET PO PRN (17:54)
[2019-09-28] MEDS: Furosemide 20 MG TABLET PO SCH (20:48)
[2019-09-28] MEDS: *HR* OxyCODONE/APAP 10/325 TABLET PO PRN (20:48)
[2019-09-28] MEDS: Gabapentin 400 MG CAPSULE PO SCH (20:48)
[2019-09-28] MEDS: ceFAZolin 2,000 MG in 0.9 % Sodium Chloride 100 ML IVPB SCH (20:49)
[2019-09-28] MEDS ORDERED: Acetaminophen/Aspirin/Caffeine TABLET PO SCH (21:00)
[2019-09-29 02:44] LABS: Basophils % 0.1 %; Hematocrit 40.9 % (35.3-44.9); Immature Granulocytes % 0.5 % (0-4); Lymphocytes # 1.2 K/mcL (0.6-4.6); Lymphocytes % 8.6 %; Mean Corpuscular HGB Conc 31.8 g/dL (31.6-35.5); Mean Corpuscular Hemoglobin 27.1 pg (28.0-33.3); Mean Corpuscular Volume 85.4 fL (83.0-100.0); Mean Platelet Volume 9.8 fL (9.4-12.4); Monocytes # 0.5 K/mcL (0.0-1.3); Monocytes % 3.4 %; Neutrophils # 12.6 K/mcL (1.6-8.9); Platelet Count 279 K/mcL (140-400); Red Blood Count 4.79 M/mcL (3.82-4.97); Red Cell Distribution Width 17.4 % (11.5-14.5); Segmented Neutrophils % 87.4 %; White Blood Count 14.4 K/mcL (4.3-11.1)
[2019-09-29 02:57] LABS: BUN/Creatinine Ratio 16 (6-26); Blood Urea Nitrogen 12 mg/dL (6-20); Calcium 8.7 mg/dL (8.6-10.3); Carbon Dioxide 26 mEq/L (23-29); Chloride 105 mEq/L (98-107); Glucose 129 mg/dL (70-105); Osmolality,Calculated 285 (280-300); Sodium 137 mEq/L (136-145); eGFR For African Americans > 60 (> 60); eGFR For Non-African Americans > 60 (> 60)
[2019-09-29] MEDS: ceFAZolin 2,000 MG in 0.9 % Sodium Chloride 100 ML IVPB SCH ×2 (04:57→12:53)
[2019-09-29] MEDS: *HR* OxyCODONE/APAP 10/325 TABLET PO PRN ×2 (05:03→12:58)
[2019-09-29] MEDS: Gabapentin 400 MG CAPSULE PO SCH ×2 (07:26→12:52)
[2019-09-29] MEDS: Furosemide 20 MG TABLET PO SCH (07:26)
[2019-09-29] MEDS ORDERED: carvediloL 6.25 MG TABLET PO SCH (08:00)
[2019-09-29 11:11] VITALS: BP 145/69
== END 2019-09-29 14:43 | disposition home health service (06) | DRG 253 ==
LOC: SAMDAY 08:39 → 2NNU 17:40
PROVIDERS: ADMIT Surgery Vascular Surgery; ATTEND Surgery Vascular Surgery